=== PATIENT | female | born 1985 | race American Indian/Alaskan Native ===

== ENCOUNTER 2017-02-10 11:33 | Emergency (ER) | payer MEDICAID ==
[2017-02-10] MEDS ORDERED: AFRIN NS ONE (14:16)
[2017-02-10] MEDS ORDERED: NORCO 5/325 PO ONE (14:16)
[2017-02-10] MEDS ORDERED: SUDAFED PO PRN ×2 (14:17→15:32)
--- NOTE | 2017-02-10 14:20 | Emergency Department Report ---
ED ENT HPI - General Chief complaint: Sore Throat Stated complaint: FATIGUE/SORE THROAT/RASH/BACK PAIN Source: patient Mode of arrival: Ambulatory Limitations: No Limitations - History of Present Illness Initial comments: 31-year-old -[place] female comes in for complaint of sore throat these congestion body aches nausea vomiting chills and a rash on her upper lip. Patient reports essentially going on for at least a week. She complains mostly of the nasal congestion or sore throat. She had noticed that there were some white spots on the back of her throat. She denies any past medical history no current medications taken and no known drug allergies. - Related Data Previous Rx's Medication Instructions Recorded Last Taken Type Fluticasone [Flonase] 1 spray NS QDAY #1 bottle 02/10/17 Unknown Rx Loratadine [Claritin] 10 mg PO DAILY #30 tablet 02/10/17 Unknown Rx Pseudoephedrine [Sudafed] 60 mg PO Q8H PRN #30 tablet 02/10/17 Unknown Rx Allergies Allergy/AdvReac Type Severity Reaction Status Date / Time No Known Allergies Allergy Unverified 02/10/17 11:44 ED Dental HPI - General Chief complaint: Sore Throat Stated complaint: FATIGUE/SORE THROAT/RASH/BACK PAIN Source: patient Mode of arrival: Ambulatory Limitations: No Limitations - Related Data Previous Rx's Medication Instructions Recorded Last Taken Type Fluticasone [Flonase] 1 spray NS QDAY #1 bottle 02/10/17 Unknown Rx Loratadine [Claritin] 10 mg PO DAILY #30 tablet 02/10/17 Unknown Rx Pseudoephedrine [Sudafed] 60 mg PO Q8H PRN #30 tablet 02/10/17 Unknown Rx Allergies Allergy/AdvReac Type Severity Reaction Status Date / Time No Known Allergies Allergy Unverified 02/10/17 11:44 ED Review of Systems ROS: Stated complaint: FATIGUE/SORE THROAT/RASH/BACK PAIN Other details as noted in HPI Constitutional: chills ED Past Medical Hx - Past Medical History Previous Medical History?: No - Surgical History Past Surgical History?: No - Social History Smoking Status: Current Every Day Smoker Substance Use Type: Marijuana - Medications Home Medications: Home Medications Medication Instructions Recorded Confirmed Last Taken Type Fluticasone [Flonase] 1 spray NS QDAY #1 bottle 02/10/17 Unknown Rx Loratadine [Claritin] 10 mg PO DAILY #30 tablet 02/10/17 Unknown Rx Pseudoephedrine [Sudafed] 60 mg PO Q8H PRN #30 tablet 02/10/17 Unknown Rx ED Physical Exam - General Limitations: No Limitations General appearance: alert, in no apparent distress - Head Head exam: Present: atraumatic, normocephalic - Eye Eye exam: Present: normal appearance, PERRL, EOMI - ENT ENT exam: Present: mucous membranes moist, TM's normal bilaterally - Expanded ENT Exam Expanded Throat exam: Positive: tonsillar erythema, tonsillomegaly, tonsillar exudate - Neck Neck exam: Present: normal inspection, full ROM, lymphadenopathy (anterior) - Respiratory Respiratory exam: Present: normal lung sounds bilaterally. Absent: respiratory distress, wheezes, rales - Cardiovascular Cardiovascular Exam: Present: normal rhythm, tachycardia, normal heart sounds - GI/Abdominal GI/Abdominal exam: Present: soft. Absent: distended, tenderness ED Course Vital Signs 02/10/17 11:44 Temperature 98.3 F Pulse Rate 102 H Respiratory 18 Rate Blood Pressure 104/68 O2 Sat by Pulse 100 Oximetry ED Medical Decision Making - Medical Decision Making 31 Year old female patient presents today with sore throat and nasal congestion body aches nausea vomiting with chills and rash. Lab reveal positive strep. Patient is in no acute distress at this time. She will be discharged home and encouraged to follow up with a primary care provider. She is encouraged to return to the emergency room for any worsening symptoms. Critical care attestation.: If time is entered above; I have spent that time in minutes in the direct care of this critically ill patient, excluding procedure time. ED Disposition Clinical Impression: Strep pharyngitis Upper respiratory infection Qualifiers: URI type: acute tonsilitis Pharyngitis/tonsillitis etiology: streptococcus Streptococcal tonsillitis recurrence: non-recurrent Qualified Code(s): J03.00 - Acute streptococcal tonsillitis, unspecified Disposition: DISCHARGED TO HOME OR SELFCARE Is pt being admited?: No Does the pt Need Aspirin: No Condition: Stable Instructions: Tonsillitis (ED), Strep Throat (ED) Additional Instructions: U have strep pharyngitis. He had been given a penicillin injection for treatment. Recommended to take the Claritin 1 tablet by mouth daily Flonase 1 spray per nostril twice a day he can use Afrin W been given before going to bed to help him sleep better. Take the Sudafed as prescribed. If symptoms get worse follow-up with her primary care provider Prescriptions: Fluticasone [Flonase] 1 spray NS QDAY #1 bottle Loratadine [Claritin] 10 mg PO DAILY #30 tablet Pseudoephedrine [Sudafed] 60 mg PO Q8H PRN #30 tablet PRN Reason: Nasal Congestion Referrals: PRIMARY CARE, [Primary Care Provider] - 3-5 Days Forms: Work/School Release Form(ED)
[2017-02-10] MEDS ORDERED: DELTASONE PO NR (15:00)
[2017-02-10] MEDS ORDERED: BICILLIN L-A IM ONE (15:14)
[2017-02-10 15:30] VITALS: BP 100/53
== END 2017-02-10 15:54 | disposition home or self-care (01) ==
LOC: ED 11:33
DX: J03.00 Acute streptococcal tonsillitis, unspecified (principal); J02.0 Streptococcal pharyngitis; F17.200 Nicotine dependence, unspecified, uncomplicated; F12.10 Cannabis abuse, uncomplicated
CPT/HCPCS: 87430; 96372; 99282; J0561; J7512